=== PATIENT | male | born 1990 | race Caucasian/White ===

== ENCOUNTER 2020-10-31 17:12 | Emergency (ER) | payer OTHER ==
[~2020-10-31] VITALS: Ht 185.4 cm; Wt 99.8 kg
[2020-10-31 20:36] VITALS: BP 146/93
--- NOTE | 2020-11-01 09:55 | EKG ---
[place] [address] ELECTROCARDIOGRAM REPORT Name: VIDHI PETIT Room: [facility]#: [id number] Admission: 10/31/20 Attend Phys: Discharge: 10/31/20 Date of : 86 Date of Service: 10/31/201716 Report #: [id number] THIS REPORT FOR: //name// [facility] ED Test Date: 2020-10-31 Test Time: 17:17:43 Pat Name: VIDHI PETIT Department: Room: Gender: Obstetrical Tech: [facility] : 1990 Requested By: Keaton Reyes Order Number: [id number] Brenda MD: Asael Vasques Measurements Intervals [place] Rate: 101 P: 31 ND: 163 QRS: 3 QRSD: 95 T: 33 QT: 316 QTc: 410 Interpretive Statements Sinus tachycardia No previous ECG available for comparison Electronically Signed On 11-01-2020 9:55:15 CDT by Asael Vasques [email or web address] <ELECTRONICALLY SIGNED> By: Asael Vasques MD, [facility] 11/01/20 [id number] Asael Vasques MD, FACC /EPI
== END 2020-10-31 20:36 | disposition left against medical advice (07) ==
LOC: M.ERS 17:12
DX: F10.920 Alcohol use, unspecified with intoxication, uncomplicated (principal); R07.89 Other chest pain; R11.2 Nausea with vomiting, unspecified; Z53.21 Procedure and treatment not carried out due to patient leaving prior to being seen by health care provider